=== PATIENT | female | born 1990 | race Caucasian/White ===

== ENCOUNTER 2021-04-26 10:23 | Observation (INO) | payer OTHER, SELFPAY ==
[~2021-04-26] VITALS: Ht 152.4 cm; Wt 97.1 kg
[2021-04-26] MEDS ORDERED: BEN50 PO (11:33)
[2021-04-26 11:37] VITALS: BP 121/81
== END 2021-04-26 13:00 | disposition home or self-care (01) ==
LOC: MLD 10:23
PROVIDERS: ADMIT Obstetrics & Gynecology; ATTEND Obstetrics & Gynecology
DX: O47.03 False labor before 37 completed weeks of gestation, third trimester (principal); Z20.822 Contact with and (suspected) exposure to COVID-19; Z3A.35 35 weeks gestation of pregnancy
CPT/HCPCS: 59025; 76805; 81000; 87426; G0378; Q0092

== ENCOUNTER 2021-05-08 10:16 | Observation (INO) | payer OTHER, SELFPAY ==
[~2021-05-08] VITALS: Ht 154.9 cm; Wt 100.7 kg
[~2021-05-08 10:16] MED LIST: BEN50 PO
[2021-05-08 13:55] VITALS: BP 130/73
== END 2021-05-08 13:40 | disposition home or self-care (01) ==
LOC: MLD 10:16
PROVIDERS: ADMIT Obstetrics & Gynecology; ATTEND Obstetrics & Gynecology
DX: O47.1 False labor at or after 37 completed weeks of gestation (principal); Z3A.38 38 weeks gestation of pregnancy
CPT/HCPCS: 59025; 76815; 81000; G0378; Q0092

== ENCOUNTER 2021-05-12 10:51 | Observation (INO) | payer OTHER, SELFPAY ==
[~2021-05-12] VITALS: Ht 154.9 cm; Wt 99.3 kg
[2021-05-12] MEDS ORDERED: HYDR200T5 PO (11:29)
[2021-05-12] MEDS ORDERED: DIPH25TA53 PO (11:29)
[2021-05-12 11:33] VITALS: BP 120/61
== END 2021-05-12 13:35 | disposition home or self-care (01) ==
LOC: MLD 10:51
PROVIDERS: ADMIT Obstetrics & Gynecology; ATTEND Obstetrics & Gynecology
DX: O47.1 False labor at or after 37 completed weeks of gestation (principal); Z20.822 Contact with and (suspected) exposure to COVID-19; Z3A.38 38 weeks gestation of pregnancy; Z98.891 History of uterine scar from previous surgery
CPT/HCPCS: 59025; 76815; 87426; G0378; G0379; Q0092

== ENCOUNTER 2021-05-31 18:32 | Emergency (ER) | payer OTHER ==
[~2021-05-31] VITALS: Ht 154.9 cm; Wt 96.6 kg
[~2021-05-31 18:32] MED LIST changes: -BEN50 PO; +DIPH25TA53 PO; +HYDR200T5 PO
[2021-05-31 18:34] VITALS: BP 136/57
[2021-05-31] MEDS ORDERED: NACL 0.9% 1,000 ML IV ONE (18:55)
[2021-05-31] MEDS ORDERED: CIPR500T4 PO (19:17)
[2021-05-31] MEDS ORDERED: METR-435 PO (19:17)
[2021-05-31] MEDS ORDERED: HYDROcodone/APAP 5/325 MG 1 TAB TAB PO ONE (19:20)
[2021-05-31] MEDS ORDERED: NAPR-54 PO (19:20)
[2021-05-31 20:25] LABS: BASOPHILS % (AUTO) 0.2 % (0.0-2.0); EOSINOPHILS % (AUTO) 0.2 % (0.0-4.0); HEMOGLOBIN 11.1 g/dL (12.0-16.0); LYMPHOCYTES # (AUTO) 0.6 K/uL (2.5-16.5); LYMPHOCYTES % (AUTO) 5.1 % (20.5-51.1); MEAN CORPUSCULAR HEMOGLOBIN 28 pg (27-31); MEAN CORPUSCULAR HGB CONC 34 g/dL (33-37); MEAN CORPUSCULAR VOLUME 83.5 fL (80-94); MONOCYTES # (AUTO) 0.7 K/uL (0.8-1.0); MONOCYTES % (AUTO) 5.7 % (1.7-9.3); NEUTROPHILS # (AUTO) 10.7 K/uL (1.8-7.7); NEUTROPHILS % (AUTO) 88.8 % (42.2-75.2); PLATELET COUNT (AUTO) 333 K/uL (140-450); RED BLOOD CELL COUNT(AUTO) 3.95 MIL/uL (4.20-5.40); RED CELL DISTRIBUTION WIDTH 16.1 % (11.6-13.7); WHITE BLOOD COUNT (AUTO) 12.1 K/uL (4.8-10.8)
[2021-05-31 20:40] LABS: PROTHROMBIN TIME 10.3 secs (10.8-13.4)
[2021-05-31 20:41] LABS: ANION GAP 14.7 (8-16); CREATININE 0.6 mg/dL (0.6-1.3); POTASSIUM 3.7 mmol/L (3.5-5.1); TOTAL BILIRUBIN 0.4 mg/dL (0.0-1.0)
[2021-05-31] MEDS ORDERED: METHYLERGONOVINE 0.2 MG TAB PO ONE (23:10)
[2021-05-31] MEDS ORDERED: [UNRECOGNIZED DRUG - CODE] PO (23:14)
[2021-05-31 23:21] VITALS: BP 136/57
== END 2021-05-31 23:32 | disposition home or self-care (01) ==
LOC: MED 18:32
DX: O72.1 Other immediate postpartum hemorrhage (principal); Z20.822 Contact with and (suspected) exposure to COVID-19
CPT/HCPCS: 36415; 76856; 80053; 81002; 85025; 85379; 85384; 85610; 85730; 86886; 86900; 86901; 87426; 96360; 99291; J7030; Q0092